=== PATIENT | female | born 1950 | race Two or more races ===

== ENCOUNTER 2021-12-04 02:33 | Inpatient (IN) | payer OTHER ==
[~2021-12-04] VITALS: Ht 30.5 cm; Wt 5.0 kg
[2021-12-04] MEDS ORDERED: KETO10TA2 PO (04:42)
[2021-12-04] MEDS ORDERED: NORVASC5 MG PO (04:42)
[2021-12-04] MEDS ORDERED: AVAPRO150 MG PO (04:42)
[2021-12-04] MEDS ORDERED: ACID REDUCER20 M1 PO (04:43)
[2021-12-04] MEDS ORDERED: PEPCID AC10 MG PO (04:43)
[2021-12-04] MEDS ORDERED: ALPRAZOLAM ODT0.5 MG PO (04:44)
[2021-12-04] MEDS ORDERED: PYRIDIUM100 M1 PO (04:44)
[2021-12-05] MEDS ORDERED: VITAMIN D3250 MCG (14:23)
[2021-12-05] MEDS ORDERED: OMEPRAZOLE40 MG (14:23)
== END 2021-12-12 10:13 | disposition home or self-care (01) | DRG 392 ==
LOC: ER 02:33 → SEC-K 10:23 → SURH 10:23
PROVIDERS: ADMIT Surgery; ATTEND Surgery
PROC: 02HV33Z Insertion of Infusion Device into Superior Vena Cava, Percutaneous Approach (ICD-10-PCS; 2021-12-05)
PROC: 30233N1 Transfusion of Nonautologous Red Blood Cells into Peripheral Vein, Percutaneous Approach (ICD-10-PCS; 2021-12-05)
PROC: BW21YZZ Computerized Tomography (CT Scan) of Abdomen and Pelvis using Other Contrast (ICD-10-PCS; 2021-12-06)
PROC: 0DBN8ZX Excision of Sigmoid Colon, Via Natural or Artificial Opening Endoscopic, Diagnostic (ICD-10-PCS; principal; 2021-12-08)
DX: K57.32 Diverticulitis of large intestine without perforation or abscess without bleeding (principal); N32.1 Vesicointestinal fistula; N39.0 Urinary tract infection, site not specified; Z16.12 Extended spectrum beta lactamase (ESBL) resistance; D12.6 Benign neoplasm of colon, unspecified; D64.9 Anemia, unspecified; I11.9 Hypertensive heart disease without heart failure; B96.1 Klebsiella pneumoniae [K. pneumoniae] as the cause of diseases classified elsewhere; B96.89 Other specified bacterial agents as the cause of diseases classified elsewhere; Z20.822 Contact with and (suspected) exposure to COVID-19; E86.0 Dehydration; E87.8 Other disorders of electrolyte and fluid balance, not elsewhere classified; Z86.19 Personal history of other infectious and parasitic diseases

== ENCOUNTER 2022-01-09 09:15 | Inpatient (IN) | payer OTHER ==
[~2022-01-09] VITALS: Ht 154.9 cm; Wt 45.4 kg
[~2022-01-09 09:15] MED LIST: ACID REDUCER20 M1 PO; ALPRAZOLAM ODT0.5 MG PO; AVAPRO150 MG PO; KETO10TA2 PO; NORVASC5 MG PO; OMEPRAZOLE40 MG; PEPCID AC10 MG PO; PYRIDIUM100 M1 PO; VITAMIN D3250 MCG
[2022-01-09] MEDS ORDERED: TORADOL PO (09:34)
[2022-01-09] MEDS ORDERED: PANADOL PO (09:35)
[2022-01-18] MEDS ORDERED: AMLODIPINE BESY10 MG (09:33)
[2022-01-18] MEDS ORDERED: GABAPENTIN100 M2 (09:33)
[2022-01-18] MEDS ORDERED: VITAMIN D3250 MCG (09:36)
[2022-01-18] MEDS ORDERED: FAMOTIDINE40 MG (09:37)
[2022-01-18] MEDS ORDERED: OMEPRAZOLE40 MG (09:37)
[2022-01-18] MEDS ORDERED: PANADOL EXTRA500 MG PO (09:37)
[2022-01-18] MEDS ORDERED: KETO10TA2 PO (09:38)
[2022-01-29] MEDS ORDERED: FAMOTIDINE20 MG PO (15:26)
[2022-01-29] MEDS ORDERED: INTESTINEX680 M1 PO (15:26)
[2022-01-29] MEDS ORDERED: GABAPENTIN300 MG PO (15:26)
[2022-01-29] MEDS ORDERED: AVAPRO150 MG PO (15:26)
[2022-01-29] MEDS ORDERED: AMLODIPINE BESYL5 MG PO (15:26)
== END 2022-01-29 16:19 | disposition home or self-care (01) | DRG 329 ==
LOC: SURH 01-11 07:00 → O/R 01-18 06:28 → SURH 01-18 06:28
PROVIDERS: ADMIT Surgery; ATTEND Surgery
PROC: 0DBP4ZZ Excision of Rectum, Percutaneous Endoscopic Approach (ICD-10-PCS; 2022-01-18)
PROC: 0DNB4ZZ Release Ileum, Percutaneous Endoscopic Approach (ICD-10-PCS; 2022-01-18)
PROC: 0TNB4ZZ Release Bladder, Percutaneous Endoscopic Approach (ICD-10-PCS; 2022-01-18)
PROC: 0DBB4ZZ Excision of Ileum, Percutaneous Endoscopic Approach (ICD-10-PCS; 2022-01-18)
PROC: 0DJD8ZZ Inspection of Lower Intestinal Tract, Via Natural or Artificial Opening Endoscopic (ICD-10-PCS; 2022-01-18)
PROC: 3E0F7SF Introduction of Other Gas into Respiratory Tract, Via Natural or Artificial Opening (ICD-10-PCS; 2022-01-18)
PROC: 0DTN4ZZ Resection of Sigmoid Colon, Percutaneous Endoscopic Approach (ICD-10-PCS; principal; 2022-01-18 08:15)
PROC: 30243N1 Transfusion of Nonautologous Red Blood Cells into Central Vein, Percutaneous Approach (ICD-10-PCS; 2022-01-21)
PROC: 4A12X45 Monitoring of Cardiac Electrical Activity, Ambulatory, External Approach (ICD-10-PCS; 2022-01-21)
PROC: 0TJB8ZZ Inspection of Bladder, Via Natural or Artificial Opening Endoscopic (ICD-10-PCS; 2022-01-24)
DX: C19 Malignant neoplasm of rectosigmoid junction (principal); K65.8 Other peritonitis; N32.1 Vesicointestinal fistula; J90 Pleural effusion, not elsewhere classified; J98.11 Atelectasis; A04.72 Enterocolitis due to Clostridium difficile, not specified as recurrent; E87.1 Hypo-osmolality and hyponatremia; N39.0 Urinary tract infection, site not specified; Z16.12 Extended spectrum beta lactamase (ESBL) resistance; K57.20 Diverticulitis of large intestine with perforation and abscess without bleeding; K57.30 Diverticulosis of large intestine without perforation or abscess without bleeding; B96.1 Klebsiella pneumoniae [K. pneumoniae] as the cause of diseases classified elsewhere; D64.89 Other specified anemias; R06.00 Dyspnea, unspecified; E87.6 Hypokalemia; N73.6 Female pelvic peritoneal adhesions (postinfective); R19.4 Change in bowel habit; I11.9 Hypertensive heart disease without heart failure